=== PATIENT | female | born 1945 | race Caucasian/White ===

== ENCOUNTER 2017-01-24 11:31 | Day surgery (SDC) | payer MEDICARE, BC ==
[2017-01-24] MEDS ORDERED: PROPOFOL 10 MG/ML VIAL IV ONE (11:32)
[2017-01-24] MEDS ORDERED: LIDOCAINE 2% MDV (20MG/ML) 20ML VIAL IV ONE (11:32)
--- NOTE | 2017-01-27 12:53 | Operative Note ---
DATE OF SURGERY: 01/24/2017 SURGEON: Ryan Olson MD OPERATION: COLONOSCOPY. INDICATIONS: This is a 71-year-old female with history of chronic diarrhea who presented for colonoscopy. POSTOPERATIVE DIAGNOSES: 1. Left-sided colonic diverticulosis. 2. Otherwise normal colon and terminal ileal mucosa. ANESTHESIA: Sedation is per Anesthesia. Pulse oximetry was monitored throughout the procedure to maintain O2 saturation of 90% or greater. Supplemental oxygen was administered via nasal cannula. Cardiac and vital signs were monitored throughout the duration of the procedure, and they were stable. The procedure of colonoscopy and risks and alternatives of the procedure, including the risk of bleeding and perforation, among others, were explained to the patient who voiced understanding and agreed to have the procedure done. Physical examination was performed, and the patient was found stable for sedation. PROCEDURE: The patient was placed in the left lateral position. Sedation was initiated. A digital rectal exam was performed and showed some mild external hemorrhoids with no palpable rectal masses. An Olympus PCF-180AL colonoscope was then inserted into the rectum under direct visualization. It was advanced to the cecum without difficulty. The ileocecal valve and appendiceal orifice were identified and photographed. The colonic mucosa was carefully examined upon introduction of the colonoscope. There were scattered diverticula noted in the sigmoid and descending colon. There were no other lesions noted. The ileocecal valve was intubated and terminal ileal mucosa was inspected for about 10 cm and it appeared normal. The colonoscope was then withdrawn while carefully examining the colonic mucosal surfaces. No other lesions were noted. In the rectum, retroflexion was performed and grade 1 internal hemorrhoids were noted. Random colon biopsies were obtained to rule out microscopic colitis. RECOMMENDATIONS: 1. The patient should be on a high-fiber diet. 2. The patient is to have a repeat colonoscopy for screening in about 10 years. Thank you for allowing me to participate in the care of your patient. CC: Dr. Cliff GONZALEZ
== END 2017-01-24 13:36 | disposition home or self-care (01) ==
LOC: HOP 11:31
PROVIDERS: ATTEND Internal Medicine Gastroenterology
DX: K52.9 Noninfective gastroenteritis and colitis, unspecified (principal); K57.30 Diverticulosis of large intestine without perforation or abscess without bleeding; I10 Essential (primary) hypertension; F32.9 Major depressive disorder, single episode, unspecified; I48.91 Unspecified atrial fibrillation; E78.00 Pure hypercholesterolemia, unspecified; Z79.890 Hormone replacement therapy
CPT/HCPCS: 00810; 88305; G0105

== ENCOUNTER 2017-10-10 09:39 | Emergency (ER) | payer MEDICARE, BC ==
[2017-10-10] MEDS ORDERED: 0.9 % SODIUM CHLORIDE 1000ML 1,000 ML IV PRN (09:44)
--- NOTE | 2017-10-10 09:46 | Emergency Department Record ---
History of Present Illness - General Chief complaint: Eye Problem Stated complaint: VISION ISSUE/HEADACHE/DIZZY Time Seen by Provider: 10/10/17 09:43 - Related Data Home Medications Medication Instructions Recorded Confirmed Last Taken Apixaban [Eliquis] 5 mg PO BID 10/10/17 10/10/17 Unknown Atorvastatin Calcium [Lipitor] 10 mg PO QHS 10/10/17 10/10/17 Unknown Calcium Carbonate [Calcium] 500 mg PO BID 10/10/17 10/10/17 Unknown Diltiazem HCl [Diltiazem 24Hr ER] 100 mg PO BID 10/10/17 10/10/17 Unknown Flecainide Acetate 50 mg PO BID 10/10/17 10/10/17 Unknown Tofacitinib Citrate [Xeljanz] 5 mg PO DAILY 10/10/17 10/10/17 Unknown Allergies Allergy/AdvReac Type Severity Reaction Status Date / Time Carbapenems Allergy Unknown RASH Verified 10/10/17 10:02 Cephalosporins Allergy Unknown RASH Verified 10/10/17 10:02 erythromycin base Allergy Unknown RASH Verified 10/10/17 10:02 levofloxacin Allergy Unknown RASH Verified 10/10/17 10:02 Macrolide Antibiotics Allergy Unknown RASH Verified 10/10/17 10:02 Penicillins Allergy Unknown RASH Verified 10/10/17 10:02 pseudoephedrine Allergy Unknown PT UNSURE Verified 10/10/17 10:02 OF REACTION Quinolones Allergy Unknown HYPERSENSIT Verified 10/10/17 10:02 IVITY Sulfa (Sulfonamide Allergy Unknown HYPERSENSIT Verified 10/10/17 10:02 Antibiotics) IVITY sulfamethoxazole Allergy Unknown HYPERSENSIT Verified 10/10/17 10:02 IVITY tramadol Allergy Unknown HYPERSENSIT Verified 10/10/17 10:02 IVITY trimethoprim Allergy Unknown HYPERSENSIT Verified 10/10/17 10:02 IVITY acetaminophen [From Vicodin] Allergy itching Verified 10/10/17 10:02 cefaclor Allergy RASH Verified 10/10/17 10:23 ciprofloxacin Allergy DIARRHEA Verified 10/10/17 10:23 hydrocodone bitartrate Allergy itching Verified 10/10/17 10:02 [From Vicodin] Allergies: Allergy Unknown HYPERSENSIT Uncoded 10/10/17 10:02 IVITY Past Medical History - SOCIAL HISTORY Smoking Status: Never smoker - RESPIRATORY Hx Respiratory Disorders: Yes Hx Asthma: Yes Hx Pneumonia: Yes Hx Sleep Apnea: Yes Hx of CPAP: No - CARDIOVASCULAR Hx Cardio Disorders: Yes Hx Abnormal EKG: Yes Hx Deep Vein Thrombosis: Yes Hx Hypertension: Yes Hx Irregular Heartbeat: Yes (AFib) Hx Pacemaker/Defib: Yes - NEURO Hx Neuro Disorders: No - GI Hx GI Disorders: No - Hx Genitourinary Disorders: No - ENDOCRINE Hx Endocrine Disorders: No - MUSCULOSKELETAL Hx Musculoskeletal Disorders: Yes Hx Arthritis: Yes - PSYCH Hx Psych Problems: Yes Hx Depression: Yes - HEMATOLOGY/ONCOLOGY Hx Hematology/Oncology Disorders: No Family Medical History Hx Cancer: Mother Hx Diabetes: Father, Mother Hx Heart Disease: Mother Medical Decision Making - Lab Data Result diagrams: 10/10/17 10:00 10/10/17 10:00 Disposition Clinical Impression: Visual changes, Headache, Atrial fibrillation, CVA (cerebral vascular accident) Disposition: Acute Care Hospital Transfer Condition: (2) Stable Forms: Patient Portal Access Quality - Quality Measures Quality Measures: N/A - Blood Pressure Screening Does Patient Have Any of the Following: No Blood Pressure Classification: Pre-Hypertensive BP Reading Systolic Measurement: 150 Diastolic Measurement: 83 Screening for High Blood Pressure: < Pre-Hypertensive BP, F/U Documented > [ G8950] Pre-Hypertensive Follow-up Interventions: Referral to alternative/primary care provider.
--- NOTE | 2017-10-10 10:05 | Emergency Department Record ---
History of Present Illness - General Chief complaint: Eye Problem Stated complaint: VISION ISSUE/HEADACHE/DIZZY Time Seen by Provider: 10/10/17 09:43 Source: Patient, RN notes reviewed Mode of Arrival: Ambulatory - History of Present Illness Initial comments: patient had loss of vision looking to the right which started when she wake up and she wake this am with a headache and she had a cardioversion yesterday at [facility] with Dr. Pak for atrial fib and she is on elliquis. Patient has been in atrial fib for three years and this was her third cardioversion yesterday. No other neuro findings. MD chief complaint: Vision change Onset/Timin -: Hour(s) Onset Description: Sudden Location: Right eye Place: Other Eye Symptoms: Decreased vision, Other Severity: Moderate Consistency: Constant - Related Data Home Medications Medication Instructions Recorded Confirmed Last Taken Apixaban [Eliquis] 5 mg PO BID 10/10/17 10/10/17 Unknown Atorvastatin Calcium [Lipitor] 10 mg PO QHS 10/10/17 10/10/17 Unknown Calcium Carbonate [Calcium] 500 mg PO BID 10/10/17 10/10/17 Unknown Diltiazem HCl [Diltiazem 24Hr ER] 100 mg PO BID 10/10/17 10/10/17 Unknown Flecainide Acetate 50 mg PO BID 10/10/17 10/10/17 Unknown Tofacitinib Citrate [Xeljanz] 5 mg PO DAILY 10/10/17 10/10/17 Unknown Allergies Allergy/AdvReac Type Severity Reaction Status Date / Time Carbapenems Allergy Unknown RASH Verified 10/10/17 10:02 Cephalosporins Allergy Unknown RASH Verified 10/10/17 10:02 erythromycin base Allergy Unknown RASH Verified 10/10/17 10:02 levofloxacin Allergy Unknown RASH Verified 10/10/17 10:02 Macrolide Antibiotics Allergy Unknown RASH Verified 10/10/17 10:02 Penicillins Allergy Unknown RASH Verified 10/10/17 10:02 pseudoephedrine Allergy Unknown PT UNSURE Verified 10/10/17 10:02 OF REACTION Quinolones Allergy Unknown HYPERSENSIT Verified 10/10/17 10:02 IVITY Sulfa (Sulfonamide Allergy Unknown HYPERSENSIT Verified 10/10/17 10:02 Antibiotics) IVITY sulfamethoxazole Allergy Unknown HYPERSENSIT Verified 10/10/17 10:02 IVITY tramadol Allergy Unknown HYPERSENSIT Verified 10/10/17 10:02 IVITY trimethoprim Allergy Unknown HYPERSENSIT Verified 10/10/17 10:02 IVITY acetaminophen [From Vicodin] Allergy itching Verified 10/10/17 10:02 cefaclor Allergy RASH Verified 10/10/17 10:23 ciprofloxacin Allergy DIARRHEA Verified 10/10/17 10:23 hydrocodone bitartrate Allergy itching Verified 10/10/17 10:02 [From Vicodin] Allergies: Allergy Unknown HYPERSENSIT Uncoded 10/10/17 10:02 IVITY Travel Screening - Travel/Exposure Within Last 30 Days Have you traveled within the last 30 days?: No - Travel/Exposure Within Last Year Have you traveled outside the [place] in the last year?: No - Additonal Travel Details Have you been exposed to anyone with a communicable illness?: No - Travel Symptoms Symptom Screening: None Review of Systems Reviewed: No additional complaints except as noted below Constitutional: Reports: As per HPI. Denies: Chills, Fever, Malaise, Night sweats, Weakness, Weight change Eyes: Reports: As per HPI, Vision change (loss of vision looking right). Denies : Eye discharge, Eye pain, Photophobia ENT: Reports: As per HPI. Denies: Congestion, Dental pain, Ear pain, Epistaxis , Hearing loss, Throat pain Respiratory: Reports: As per HPI. Denies: Cough, Dyspnea, Hemoptysis, Stridor, Wheezes Cardiovascular: Reports: As per HPI. Denies: Arrhythmia, Chest pain, Dyspnea on exertion, Edema, Murmurs, Orthopnea, Palpitations, Paroxysmal nocturnal dyspnea, Rheumatic Fever, Syncope Endocrine: Reports: As per HPI. Denies: Fatigue, Heat or cold intolerance, Polydipsia, Polyuria Gastrointestinal: Reports: As per HPI. Denies: Abdominal pain, Constipation, Diarrhea, Hematemesis, Hematochezia, Melena, Nausea, Vomiting Genitourinary: Reports: As per HPI. Denies: Abnormal menses, Discharge, Dyspareunia, Dysuria, Frequency, Hematuria, Incontinence, Retention, Urgency Musculoskeletal: Reports: As per HPI. Denies: Arthralgia, Back pain, Gout, Joint swelling, Myalgia, Neck pain Skin: Reports: As per HPI. Denies: Bruising, Change in color, Change in hair/ nails, Lesions, Pruritus, Rash Neurological: Reports: As per HPI, Headache. Denies: Abnormal gait, Confusion, Numbness, Paresthesias, Seizure, Tingling, Tremors, Vertigo, Weakness Psychiatric: Reports: As per HPI. Denies: Anxiety, Auditory hallucinations, Depression, Homicidal thoughts, Suicidal thoughts, Visual hallucinations Hematological/Lymphatic: Reports: As per HPI. Denies: Anemia, Blood Clots, Easy bleeding, Easy bruising, Swollen glands Past Medical History - SOCIAL HISTORY Smoking Status: Never smoker - RESPIRATORY Hx Respiratory Disorders: Yes Hx Asthma: Yes Hx Pneumonia: Yes Hx Sleep Apnea: Yes Hx of CPAP: No - CARDIOVASCULAR Hx Cardio Disorders: Yes Hx Abnormal EKG: Yes Hx Deep Vein Thrombosis: Yes Hx Hypertension: Yes Hx Irregular Heartbeat: Yes (AFib) Hx Pacemaker/Defib: Yes - NEURO Hx Neuro Disorders: No - GI Hx GI Disorders: No - Hx Genitourinary Disorders: No - ENDOCRINE Hx Endocrine Disorders: No - MUSCULOSKELETAL Hx Musculoskeletal Disorders: Yes Hx Arthritis: Yes - PSYCH Hx Psych Problems: Yes Hx Depression: Yes - HEMATOLOGY/ONCOLOGY Hx Hematology/Oncology Disorders: No Family Medical History Hx Cancer: Mother Hx Diabetes: Father, Mother Hx Heart Disease: Mother Physical Exam - General General Appearance: Alert, Oriented x3, Cooperative, Mild distress - Head Head exam: Normal inspection - Eye Eye exam: Normal appearance, PERRL, Other (bilateral hemianopsia on the right side) Pupils: Normal accommodation - ENT ENT exam: Normal exam, Mucous membranes moist, Normal external ear exam, Normal orophraynx, TM's normal bilaterally Ear exam: Normal external inspection. negative: External canal tenderness Nasal Exam: Normal inspection. negative: Discharge, Sinus tenderness Mouth exam: Normal external inspection, Tongue normal Teeth exam: Normal inspection. negative: Dental caries Throat exam: Normal inspection. negative: Tonsillar erythema, Tonsillar exudate - Neck Neck exam: Normal inspection, Full ROM. negative: Tenderness - Respiratory Respiratory exam: Normal lung sounds bilaterally. negative: Respiratory distress - Cardiovascular Cardiovascular Exam: Regular rate, Normal rhythm, Normal heart sounds - GI/Abdominal GI/Abdominal exam: Soft, Normal bowel sounds. negative: Tenderness - Rectal Rectal exam: Deferred - exam: Deferred - Extremities Extremities exam: Normal inspection, Full ROM, Normal capillary refill. negative: Tenderness - Back Back exam: Reports: Normal inspection, Full ROM. Denies: Muscle spasm, Rash noted, Tenderness - Neurological Neurological exam: Alert, Normal gait, Oriented X3, Reflexes normal - Psychiatric Psychiatric exam: Normal affect, Normal mood - Skin Skin exam: Dry, Intact, Normal color, Warm Course Vital Signs 10/10/17 09:43 Temperature 98.7 F Pulse Rate 72 Respiratory 16 Rate Blood Pressure 150/83 Pulse Ox 97 - Reevaluation(s) Reevaluation #1: patient was without symptoms last night at 9 pm and discussed case [facility] stroke team Dr. Lyon and the ED physician Dr. Hamilton and will transfer to [facility] for possible intervention. 10/10/17 10:54 Medical Decision Making - Data Complexity MDM Data: Labs Ordered and/or Reviewed, X-Ray Ordered and/or Reviewed (CT head negative), EKG Ordered and/or Reviewed (NSR no acute changes) - Lab Data Result diagrams: 10/10/17 10:00 10/10/17 10:00 Disposition Clinical Impression: Visual changes Headache Qualifiers: Headache type: unspecified Headache chronicity pattern: acute headache Intractability: not intractable Qualified Code(s): R51 - Headache Atrial fibrillation Qualifiers: Atrial fibrillation type: chronic Qualified Code(s): I48.2 - Chronic atrial fibrillation CVA (cerebral vascular accident) Qualifiers: CVA mechanism: unspecified Qualified Code(s): I63.9 - Cerebral infarction, unspecified Disposition: Acute Care Hospital Transfer Condition: (2) Stable Forms: Patient Portal Access Time of Disposition: 10:56 Quality - Quality Measures Quality Measures: N/A - Blood Pressure Screening Does Patient Have Any of the Following: No Blood Pressure Classification: Pre-Hypertensive BP Reading Systolic Measurement: 150 Diastolic Measurement: 83 Screening for High Blood Pressure: < Pre-Hypertensive BP, F/U Documented > [ G8950] Pre-Hypertensive Follow-up Interventions: Referral to alternative/primary care provider.
[2017-10-10 10:14] LABS: BASO % 0.2 % (0-6); EOS % 4.8 % (0-6); GRAN % 64.5 % (47-80); HEMATOCRIT 40.2 % (35.0-47.0); HEMOGLOBIN 12.4 gm/dl (11.6-16.0); LYMPH % 22.4 % (16-45); MEAN CELL VOLUME 95.3 fl (81-97); MEAN CORPUSCULAR HEMOGLOBIN 29.4 pg (27-33); MEAN CORPUSCULAR HGB CONC 30.8 g/dl (32-36); MEAN PLATELET VOLUME 9.7 fl (7.4-10.4); MONO % 8.1 % (0-9); PLATELET COUNT 233 K/uL (130-400); RED BLOOD COUNT 4.22 M/uL (3.80-5.40); RED CELL DISTRIBUTION WIDTH 13.4 % (11.5-14.5); WHITE BLOOD COUNT W/O DIFF 4.6 K/uL (4.2-12.2)
[2017-10-10 10:25] LABS: PARTIAL THROMBOPLASTIN TIME 26.5 SECONDS (24.5-39.1); PROTHROMBIN TIME (PATIENT) 10.4 SECONDS (9.5-12.1)
[2017-10-10 10:27] LABS: BLOOD UREA NITROGEN 14 mg/dL (8-23); CREATININE 0.7 mg/dL (0.5-0.9); EST GLOMERULAR FILTRATION RATE > 60 mL/min
[2017-10-10 10:29] LABS: GLUCOSE,RANDOM 123 mg/dL (74-109)
--- NOTE | 2017-10-12 21:06 | CT SCAN REPORT ---
EXAM: CT SCAN HEAD WO CONTRAST HISTORY: HEADACHE. TECHNIQUE: Axial CT scan of the head performed without IV contrast. COMPARISON: None. FINDINGS: No definite acute intracranial hemorrhage identified. No focal mass effect or midline shift apparent. Mild generalized atrophy and some mild chronic -appearing deep white matter changes are seen, nonspecific but likely representing some chronic small vessel deep white matter ischemic disease. No definite acute infarct or intracranial mass lesion is seen. No depressed calvarial fracture evident. Paranasal sinuses all appear essentially clear. IMPRESSION: 1. MILD GENERALIZED ATROPHY WITH SOME CHRONIC-APPEARING DEEP WHITE MATTER CHANGES. 2. NO DEFINITE ACUTE INTRACRANIAL HEMORRHAGE OR FOCAL MASS EFFECT IDENTIFIED. JOB NUMBER: [id number] [facility]
== END 2017-10-10 11:15 | disposition short-term general hospital (02) ==
LOC: ER 09:39
DX: I63.9 Cerebral infarction, unspecified (principal); I48.2 Chronic atrial fibrillation; R51 Headache; H53.9 Unspecified visual disturbance; R42 Dizziness and giddiness; I10 Essential (primary) hypertension; Z95.810 Presence of automatic (implantable) cardiac defibrillator; Z79.01 Long term (current) use of anticoagulants
CPT/HCPCS: 70450; 80048; 85025; 85610; 85730; 93005; 93010; 99285